=== PATIENT | female | born 2000 | race Caucasian/White ===

== ENCOUNTER 2020-03-30 11:02 | Emergency (ER) | payer MEDICAID ==
[~2020-03-30] VITALS: Ht 165.1 cm; Wt 91.0 kg
[2020-03-30] MEDS ORDERED: HYDROmorphone 1 MG/ML, 1ML INJ ONE ×2 (11:19→13:39)
[2020-03-30] MEDS ORDERED: ONDANSETRON 2MG/ML, 2ML ONE (11:19)
[2020-03-30] MEDS: HYDROmorphone 2 MG/ML, 1ML IVPush PRN ×2 (11:27→13:39)
[2020-03-30] MEDS ORDERED: ONDANSETRON 2MG/ML, 2ML IVPush ONE (11:30)
[2020-03-30] MEDS ORDERED: SODIUM CHLORIDE FLUSH 10ML SYR IVF ONE (11:30)
--- NOTE | 2020-03-30 11:36 | NUR ---
THIS IS A 19 YO F W/ C/O SHARP LLQ ABD PAIN PROGRESSIVELY WORSE SINCE YESTERDAY. PT REPORTS MODERATE LOW BACK PAIN, NAUSEA, DENIES VOMITING AND SYMPTOMS. PT REPORTS HX OF KIDNEY STONES. PIV STARTED, LABS DRAWN AND SENT TO LAB. PT AMBULATED TO THE BR W/ A STEADY GAIT, URINE COLLECTED AND SENT TO LAB. PT MEDICATED PER EMAR. DENIES FURTHER NEEDS AT THIS TIME. PT RESTING ON [employer] W/ CALL LIGHT IN REACH AND SIDE RAILS UPX2. CONNECTED TO MONITORING, DANII BUSTOS. FAMILY AT BEDSIDE.
[2020-03-30 11:49] LABS: MEAN CORPUSCULAR HEMOGLOBIN 31.5 pg (27.0-34.8); MEAN CORPUSCULAR HGB CONC 33.6 g/dL (32.4-35.8); MEAN CORPUSCULAR VOLUME 93.8 fL (80-100); MEAN PLATELET VOLUME 8.4 fL (7.4-10.4); PLATELET COUNT 252 x10^3/uL (130-400); RED BLOOD COUNT 4.35 x10^6/uL (3.82-5.3); RED CELL DISTRIBUTION WIDTH 13.7 % (9.6-15.2)
[2020-03-30 11:54] LABS: MICROSCOPIC INDICATED
[2020-03-30 12:00] LABS: ALBUMIN 4.3 g/dL (3.4-5.0); ANION GAP 7 mmol/L (5-15); CALCIUM 9.8 mg/dL (8.5-10.1); CHLORIDE 104 mmol/L (98-107)
--- NOTE | 2020-03-30 12:00 | NUR ---
PT REPORTS RELIEF OF PAIN AFTER MEDS.
[2020-03-30 12:06] LABS: ALANINE AMINOTRANSFERASE 18 U/L (12-78); ALKALINE PHOSPHATASE 57 U/L (45-117); BILIRUBIN,TOTAL 1.4 mg/dL (0.2-1.0); TOTAL PROTEIN 8.1 g/dL (6.4-8.2)
[2020-03-30 12:07] LABS: BASOPHILS % (AUTO) 0 % (0-1); EOSINOPHILS % (AUTO) 0 % (1-7); LYMPHOCYTES % (AUTO) 2 % (22-44); MD SCAN; MONOCYTES # (AUTO) 0.04 x10^3/uL (0-1.4); MONOCYTES % (AUTO) 0 % (2-9); NEUTROPHILS # (AUTO) 20.48 x10^3/uL (1.8-8.0); NEUTROPHILS % (AUTO) 97 % (42-75)
--- NOTE | 2020-03-30 12:11 | NUR ---
ALL TESTS RESULTED PT IS UP FOR RECHECK AT THIS TIME.
--- NOTE | 2020-03-30 13:41 | NUR ---
PT REPORTS PAIN HAS RETURNED, 03/24. MEDICATED PER EMAR.
[2020-03-30] MEDS ORDERED: CEFTRIAXONE PMX 1GM/50ML 50 ML IVPB ONE (14:00)
[2020-03-30] MEDS ORDERED: CEFTRIAXONE PMX 1GM/50ML 50 ML ONE (14:13)
[2020-03-30 14:39] VITALS: BP 117/43
--- NOTE | 2020-03-30 14:46 | NUR ---
Patient given discharge instructions and they have confirmed that they understand the instructions. Patient ambulatory with steady gait.
== END 2020-03-30 14:48 | disposition home or self-care (01) ==
LOC: ED 11:54
DX: N10 Acute pyelonephritis (principal); R16.1 Splenomegaly, not elsewhere classified
CPT/HCPCS: 36415; 74176; 80053; 81001; 83690; 84703; 85025; 87086; 96365; 96375; 96376; 99285; J0696; J1170; J2405

== ENCOUNTER 2020-05-21 12:32 | Emergency (ER) | payer MEDICAID ==
[~2020-05-21] VITALS: Ht 170.2 cm; Wt 75.0 kg
[2020-05-21 12:49] VITALS: BP 127/99
--- NOTE | 2020-05-21 14:21 | NUR ---
COKE [facility]ON: PT AMBULATORY TO ROOM FROM LOBBY
[2020-05-21] MEDS ORDERED: ALBUTEROL/IPRATROPIUM 2.5MG/0.5MG, 3 ML NPPB ONE (15:00)
[2020-05-21] MEDS ORDERED: ALBUTEROL/IPRATROPIUM 2.5MG/0.5MG, 3 ML ONE (15:01)
--- NOTE | 2020-05-21 15:15 | NUR ---
PT MEDICATED PER MAR
--- NOTE | 2020-05-21 16:35 | NUR ---
PT LOLA WILSON MADE AWARE
== END 2020-05-21 16:35 | disposition left against medical advice (07) ==
LOC: ED 15:24
DX: B34.9 Viral infection, unspecified (principal); Z20.828 Contact with and (suspected) exposure to other viral communicable diseases; J98.01 Acute bronchospasm; R05 Cough; R07.89 Other chest pain; M79.10 Myalgia, unspecified site; R06.02 Shortness of breath
CPT/HCPCS: 36415; 71045; 87081; 87635; 87880; 94640; 99284